=== PATIENT | male | born 1975 | race American Indian/Alaskan Native ===

== ENCOUNTER 2017-11-13 14:08 | Inpatient (IN) | payer OTHER ==
[2017-11-13] MEDS ORDERED: NACL 0.9% 1000 ML 1,000 ML ONE (14:53)
[2017-11-13] MEDS ORDERED: NACL 0.9% 1000 ML 1,000 ML IV ONE ×2 (14:58→15:04)
--- NOTE | 2017-11-13 15:15 | Emergency Department Report ---
ED General Adult HPI - General Chief complaint: Hyperglycemia Stated complaint: BLOOD SUGAR HIGH Time Seen by Provider: 11/13/17 14:53 Source: patient, EMS (ems notes not available at time of chart dictation), RN notes reviewed Mode of arrival: Ambulatory Limitations: No Limitations - History of Present Illness Initial comments: This is a 42-year-old obese male, previously unknown to this provider, visiting from [place], has a history of sleep apnea, reports compliance with BiPAP/CPAP, typically not hypoxic at baseline, also with a past history of obesity and diabetes. 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 This is intermittent, worsens with physical exertion decreases with rest. There is no chest pain, there is no hematemesis or bright red blood per rectum. On review of systems he does admits to left lower extremity pain. Patient reports that he feels like his heart is racing, this started earlier on today. This happened about a year ago. It then resolves. It got worse recently. -: Gradual Location: left, lower extremity Severity scale (0 -10): 0 Quality: aching Consistency: constant Improves with: none Worsens with: none Associated Symptoms: malaise, shortness of breath, weakness. denies: confusion , chest pain, cough, diaphoresis, fever/chills, loss of appetite, nausea/ vomiting, rash, seizure, syncope - Related Data Home Medications Medication Instructions Recorded Confirmed Last Taken Amoxicillin [Amoxicillin TAB] 875 mg PO BID 11/13/17 11/13/17 11/13/17 Atenolol [Tenormin] 100 mg PO QDAY 11/13/17 11/13/17 11/13/17 Cholecalciferol (Vitamin D3) 50,000 unit PO QWEEK 11/13/17 11/13/17 Unknown [Decara 50,000 unit] Hydrochlorothiazide [HCTZ] 25 mg PO QDAY 11/13/17 11/13/17 11/13/17 Phentermine HCl [Adipex-P] 37.5 mg PO QAM 11/13/17 11/13/17 Unknown Allergies Allergy/AdvReac Type Severity Reaction Status Date / Time No Known Allergies Allergy Unverified 11/13/17 14:38 ED Review of Systems ROS: Stated complaint: BLOOD SUGAR HIGH Other details as noted in HPI Constitutional: denies: fever Eyes: denies: vision change ENT: denies: epistaxis Respiratory: shortness of breath Cardiovascular: denies: chest pain Gastrointestinal: denies: hematemesis, melena, hematochezia Musculoskeletal: myalgia. denies: arthralgia Skin: denies: lesions Neurological: weakness ED Past Medical Hx - Past Medical History Hx Hypertension: Yes Hx Diabetes: Yes - Surgical History Past Surgical History?: Yes Additional Surgical History: LapBand - Social History Smoking Status: Never Smoker Substance Use Type: Alcohol - Medications Home Medications: Home Medications Medication Instructions Recorded Confirmed Last Taken Type Amoxicillin [Amoxicillin TAB] 875 mg PO BID 11/13/17 11/13/17 11/13/17 History Atenolol [Tenormin] 100 mg PO QDAY 11/13/17 11/13/17 11/13/17 History Cholecalciferol (Vitamin D3) 50,000 unit PO QWEEK 11/13/17 11/13/17 Unknown History [Decara 50,000 unit] Hydrochlorothiazide [HCTZ] 25 mg PO QDAY 11/13/17 11/13/17 11/13/17 History Phentermine HCl [Adipex-P] 37.5 mg PO QAM 11/13/17 11/13/17 Unknown History ED Physical Exam - General Limitations: No Limitations General appearance: alert, in no apparent distress - Head Head exam: Present: atraumatic, normocephalic - Eye Eye exam: Present: normal appearance, EOMI. Absent: nystagmus - ENT ENT exam: Present: normal exam, normal orophraynx, mucous membranes moist, normal external ear exam - Neck Neck exam: Present: normal inspection, full ROM - Respiratory Respiratory exam: Present: normal lung sounds bilaterally. Absent: respiratory distress, chest wall tenderness - Cardiovascular Cardiovascular Exam: Present: normal rhythm, tachycardia, normal heart sounds. Absent: systolic murmur, diastolic murmur, rubs, gallop - GI/Abdominal GI/Abdominal exam: Present: soft, normal bowel sounds. Absent: distended, tenderness, guarding, rebound, rigid, pulsatile mass - Rectal Rectal exam: Present: deferred - Extremities Exam Extremities exam: Present: normal inspection, full ROM, normal capillary refill , pedal edema, other (the left Is asymmetrically swollen when compared to the right calf.). Absent: tenderness, calf tenderness - Back Exam Back exam: Present: normal inspection, full ROM. Absent: paraspinal tenderness , vertebral tenderness - Neurological Exam Neurological exam: Present: alert, oriented X3, CN II-XII intact, other ( Extraocular movements intact. Tongue midline. No facial droop. Facial sensation intact to light touch in the V1, V2, V3 distribution bilaterally. 5 and 5 strength in 4 extremities.. Sensation is intact to light touch in 4 extremities.). Absent: motor sensory deficit - Psychiatric Psychiatric exam: Present: normal affect, normal mood - Skin Skin exam: Present: warm, dry, intact, normal color. Absent: rash ED Course Vital Signs 11/13/17 11/13/17 11/13/17 14:26 14:30 14:38 Temperature 98.5 F Pulse Rate 125 H 95 H 93 H Respiratory 20 20 Rate Blood Pressure 95/57 95/57 O2 Sat by Pulse 90 96 Oximetry 11/13/17 11/13/17 11/13/17 14:44 15:01 15:30 Temperature Pulse Rate 93 H 90 86 Respiratory 15 23 Rate Blood Pressure 95/57 124/83 O2 Sat by Pulse 90 97 Oximetry 11/13/17 11/13/17 11/13/17 16:00 16:30 17:01 Temperature Pulse Rate 86 86 81 Respiratory 23 26 H 17 Rate Blood Pressure 112/63 110/69 152/73 O2 Sat by Pulse 100 91 98 Oximetry 11/13/17 11/13/17 11/13/17 17:30 17:37 18:27 Temperature 98.4 F 98.4 F Pulse Rate 83 Respiratory 25 H 19 Rate Blood Pressure 133/81 O2 Sat by Pulse 99 Oximetry - Reevaluation(s) Reevaluation #1: 11/13/17 19:09 CT scan demonstrates saddle pulmonary embolus with large clot burden. Case discussed with vascular surgery Dr. Brooks, I have requested emergency consult to determine patient's suitability for catheter directed lysis. Critical care physician Dr. Lord has been paged, I'm awaiting callback. Dr Alcala updated Reevaluation #2: 11/13/17 19:59 Dr. Duncan of the vascular surgery service is in the emergency room to evaluate the patient. - Consultations Consultation #1: 11/13/17 19:18 Case is discussed with critical care physician, Dr. Bridger Lord, who agrees with placement into the intensive care unit. ED Medical Decision Making - Lab Data Result diagrams: 11/13/17 15:07 11/13/17 15:07 Vital Signs 11/13/17 11/13/17 11/13/17 14:26 14:30 14:38 Temperature 98.5 F Pulse Rate 125 H 95 H 93 H Respiratory 20 20 Rate Blood Pressure 95/57 95/57 O2 Sat by Pulse 90 96 Oximetry 11/13/17 11/13/17 11/13/17 14:44 15:01 15:30 Temperature Pulse Rate 93 H 90 86 Respiratory 15 23 Rate Blood Pressure 95/57 124/83 O2 Sat by Pulse 90 97 Oximetry 11/13/17 11/13/17 11/13/17 16:00 16:30 17:01 Temperature Pulse Rate 86 86 81 Respiratory 23 26 H 17 Rate Blood Pressure 112/63 110/69 152/73 O2 Sat by Pulse 100 91 98 Oximetry 11/13/17 11/13/17 17:30 17:37 Temperature 98.4 F Pulse Rate 83 Respiratory 25 H Rate Blood Pressure 133/81 O2 Sat by Pulse Oximetry Lab Results 11/13/17 11/13/17 11/13/17 Range/Units 15:07 15:07 15:07 WBC 7.1 (4.5-11.0) K/mm3 RBC 5.30 H (3.65-5.03) M/mm3 Hgb 13.1 (11.8-15.2) gm/dl Hct 40.9 (35.5-45.6) % MCV 77 L (84-94) fl MCH 25 L (28-32) pg MCHC 32 (32-34) % RDW 14.2 (13.2-15.2) % Plt Count 166 (140-440) K/mm3 Lymph % (Auto) 12.8 L (13.4-35.0) % [place]ccreary % (Auto) 8.3 H (0.0-7.3) % Eos % (Auto) 0.3 (0.0-4.3) % Baso % (Auto) 0.6 (0.0-1.8) % Lymph # 0.9 L (1.2-5.4) K/mm3 Mccreary # 0.6 (0.0-0.8) K/mm3 Eos # 0.0 (0.0-0.4) K/mm3 Baso # 0.0 (0.0-0.1) K/mm3 Seg Neutrophils % 78.0 H (40.0-70.0) % Seg Neutrophils # 5.6 (1.8-7.7) K/mm3 PT (12.2-14.9) Sec. INR (0.87-1.13) APTT (24.2-36.6) Sec. D-Dimer (0-234) ng/mlDDU ABG pH (7.350-7.450) pH Units ABG pCO2 mm Hg ABG pO2 (80.0-90.0) mm Hg ABG HCO3 (20.0-26.0) mmol/L ABG O2 Saturation (95.0-99.0) % ABG O2 Content (0.0-44) ABG Base Excess (-2.0-3.0) mmol/L ABG Hemoglobin (14.0-18.0) gm/dl ABG Carboxyhemoglobin (0.0-5.0) % ABG Methemoglobin (0.0-1.5) % VBG pH 7.320 (7.320-7.420) Oxyhemoglobin (95.0-99.0) % FiO2 % Sodium 134 L (137-145) mmol/L Potassium 4.1 (3.6-5.0) mmol/L Chloride 92.0 L (98-107) mmol/L Carbon Dioxide 27 (22-30) mmol/L Anion Gap 19 mmol/L BUN 10 (9-20) mg/dL Creatinine 1.0 (0.8-1.5) mg/dL Estimated GFR > 60 ml/min BUN/Creatinine Ratio 10 % Glucose 505 H* (75-100) mg/dL POC Glucose (70-105) Calcium 9.7 (8.4-10.2) mg/dL Total Creatine Kinase (55-170) units/L Troponin T (0.00-0.029) ng/mL Triglycerides (2-149) mg/dL Cholesterol (50-199) mg/dL LDL Cholesterol Direct (50-130) mg/dL HDL Cholesterol (40-59) mg/dL Cholesterol/HDL Ratio % 11/13/17 11/13/17 11/13/17 Range/Units 15:09 15:09 15:09 WBC (4.5-11.0) K/mm3 RBC (3.65-5.03) M/mm3 Hgb (11.8-15.2) gm/dl Hct (35.5-45.6) % MCV (84-94) fl MCH (28-32) pg MCHC (32-34) % RDW (13.2-15.2) % Plt Count (140-440) K/mm3 Lymph % (Auto) (13.4-35.0) % Mccreary % (Auto) (0.0-7.3) % Eos % (Auto) (0.0-4.3) % Baso % (Auto) (0.0-1.8) % Lymph # (1.2-5.4) K/mm3 Mccreary # (0.0-0.8) K/mm3 Eos # (0.0-0.4) K/mm3 Baso # (0.0-0.1) K/mm3 Seg Neutrophils % (40.0-70.0) % Seg Neutrophils # (1.8-7.7) K/mm3 PT 14.1 (12.2-14.9) Sec. INR 1.04 (0.87-1.13) APTT 31.9 (24.2-36.6) Sec. D-Dimer 2334.31 H (0-234) ng/mlDDU ABG pH (7.350-7.450) pH Units ABG pCO2 mm Hg ABG pO2 (80.0-90.0) mm Hg ABG HCO3 (20.0-26.0) mmol/L ABG O2 Saturation (95.0-99.0) % ABG O2 Content (0.0-44) ABG Base Excess (-2.0-3.0) mmol/L ABG Hemoglobin (14.0-18.0) gm/dl ABG Carboxyhemoglobin (0.0-5.0) % ABG Methemoglobin (0.0-1.5) % VBG pH (7.320-7.420) Oxyhemoglobin (95.0-99.0) % FiO2 % Sodium (137-145) mmol/L Potassium (3.6-5.0) mmol/L Chloride (98-107) mmol/L Carbon Dioxide (22-30) mmol/L Anion Gap mmol/L BUN (9-20) mg/dL Creatinine (0.8-1.5) mg/dL Estimated GFR ml/min BUN/Creatinine Ratio % Glucose (75-100) mg/dL POC Glucose (70-105) Calcium (8.4-10.2) mg/dL Total Creatine Kinase 83 (55-170) units/L Troponin T 0.105 H* (0.00-0.029) ng/mL Triglycerides 218 H (2-149) mg/dL Cholesterol 193 (50-199) mg/dL LDL Cholesterol Direct 143 H (50-130) mg/dL HDL Cholesterol 31 L (40-59) mg/dL Cholesterol/HDL Ratio 6.22 % 11/13/17 11/13/17 Range/Units 15:10 15:20 WBC (4.5-11.0) K/mm3 RBC (3.65-5.03) M/mm3 Hgb (11.8-15.2) gm/dl Hct (35.5-45.6) % MCV (84-94) fl MCH (28-32) pg MCHC (32-34) % RDW (13.2-15.2) % Plt Count (140-440) K/mm3 Lymph % (Auto) (13.4-35.0) % M[place]reary % (Auto) (0.0-7.3) % Eos % (Auto) (0.0-4.3) % Baso % (Auto) (0.0-1.8) % Lymph # (1.2-5.4) K/mm3 Mccreary # (0.0-0.8) K/mm3 Eos # (0.0-0.4) K/mm3 Baso # (0.0-0.1) K/mm3 Seg Neutrophils % (40.0-70.0) % Seg Neutrophils # (1.8-7.7) K/mm3 PT (12.2-14.9) Sec. INR (0.87-1.13) APTT (24.2-36.6) Sec. D-Dimer (0-234) ng/mlDDU ABG pH 7.425 (7.350-7.450) pH Units ABG pCO2 39.7 mm Hg ABG pO2 57.4 L (80.0-90.0) mm Hg ABG HCO3 25.4 (20.0-26.0) mmol/L ABG O2 Saturation 90.3 L (95.0-99.0) % ABG O2 Content 15.4 (0.0-44) ABG Base Excess 1.1 (-2.0-3.0) mmol/L ABG Hemoglobin 12.4 L (14.0-18.0) gm/dl ABG Carboxyhemoglobin 1.6 (0.0-5.0) % ABG Methemoglobin 0.5 (0.0-1.5) % VBG pH (7.320-7.420) Oxyhemoglobin 88.5 L (95.0-99.0) % FiO2 21 % Sodium (137-145) mmol/L Potassium (3.6-5.0) mmol/L Chloride (98-107) mmol/L Carbon Dioxide (22-30) mmol/L Anion Gap mmol/L BUN (9-20) mg/dL Creatinine (0.8-1.5) mg/dL Estimated GFR ml/min BUN/Creatinine Ratio % Glucose (75-100) mg/dL POC Glucose 400 H (70-105) Calcium (8.4-10.2) mg/dL Total Creatine Kinase (55-170) units/L Troponin T (0.00-0.029) ng/mL Triglycerides (2-149) mg/dL Cholesterol (50-199) mg/dL LDL Cholesterol Direct (50-130) mg/dL HDL Cholesterol (40-59) mg/dL Cholesterol/HDL Ratio % - EKG Data -: EKG Interpreted by Mt EKG shows normal: sinus rhythm Rate: normal - EKG Data 11/13/17 18:32 Normal sinus, 92 bpm, right axis deviation, T-wave inversions in 3, aVF, V3, V4 , V5, incomplete right bundle branch block, QTC prolonged, abnormal EKG, not having chest pain, not consistent with a STEMI - Radiology Data Radiology results: report reviewed, image reviewed LIVE [facility] YASMINE WIGGINS Male : 1975 [facility]# [id number] 11/13/17 17:29 - Radiology Dept. Note by HELIO WORLEY [facility] Num: [id number] : 1975 Patient Age: 42 VASCULAR LAB.PRELIMINARY REPORT. BLE VENOUS DUPLEX DONE BEDSIDE. EVIDENCE OF ACUTE NON-OCCLUSIVE DVT IN THE LT.POPLITEAL VEIN.ADRIÁN(RN) INFORMED AT 1522. Initialized on 11/13/17 17:29 - END OF NOTE - Medical Decision Making Differential diagnosis, including but not limited to: Obstructive sleep apnea, obesity hypoventilation syndrome, right ventricular heart failure, lower extremity DVT, pulmonary embolus, multifactorial respiratory failure, hyperglycemia, diabetic ketoacidosis, hyperosmolar state Assessment and plan: 42-year-old obese male, found to be hypoxic, which is new for him, arterial blood gas on room air demonstrates hypoxemic respiratory failure. He has no chest pain and has normal renal function and has elevated troponin is well. Multiple risk factors for DVT and pulmonary embolus, treated empirically with Lovenox at 1 mg/kg. Reports no contraindications to systemic anticoagulation. Laboratory studies also demonstrate hyperglycemia without an anion gap acidosis. Does not meet criteria for diabetic ketoacidosis or hyperosmolar state. Given IV fluids. Declines pain medication at this time. CT scan of the chest is pending. Case presented to the Hospital physician, Dr. Alcala who accepted the patient for hyperglycemia, elevated troponin level, hypoxic respiratory failure. Critical Care Time: Yes Critical care time in (mins) excluding proc time.: 45 Critical care attestation.: If time is entered above; I have spent that time in minutes in the direct care of this critically ill patient, excluding procedure time. ED Disposition Clinical Impression: Acute hypoxemic respiratory failure, Elevated troponin I level, Hyperglycemia Deep vein thrombosis (DVT) of left lower extremity Qualifiers: Affected thrombotic vein of extremity: popliteal Chronicity: acute Qualified Code(s): I82.432 - Acute embolism and thrombosis of left popliteal vein Saddle pulmonary embolus Qualifiers: Chronicity: acute Acute cor pulmonale presence: with acute cor pulmonale Qualified Code(s): I26.02 - Saddle embolus of pulmonary artery with acute cor pulmonale Disposition: OP ADMIT IP TO THIS HOSP Is pt being admited?: Yes Does the pt Need Aspirin: Yes Condition: Critical Referrals: PRIMARY CARE, [Primary Care Provider] - 3-5 Days
[2017-11-13 15:19] LABS: Basophils % (Auto) 0.6 % (0.0-1.8); Eosinophils % (Auto) 0.3 % (0.0-4.3); Hematocrit 40.9 % (35.5-45.6); Hemoglobin 13.1 gm/dl (11.8-15.2); Lymphocytes # (Auto) 0.9 K/mm3 (1.2-5.4); Lymphocytes % (Auto) 12.8 % (13.4-35.0); Mean Corpuscular HGB Conc 32 % (32-34); Mean Corpuscular Volume 77 fl (84-94); Monocytes # (Auto) 0.6 K/mm3 (0.0-0.8); Monocytes % (Auto) 8.3 % (0.0-7.3); Platelet Count 166 K/mm3 (140-440); Red Cell Distribution Width 14.2 % (13.2-15.2)
[2017-11-13 15:20] LABS: Mean Corpuscular Hemoglobin 25 pg (28-32)
[2017-11-13 15:28] LABS: ABG Base Excess 1.1 mmol/L (-2.0-3.0); ABG HCO3 25.4 mmol/L (20.0-26.0); ABG Methemoglobin 0.5 % (0.0-1.5); ABG Oxygen Saturation 90.3 % (95.0-99.0); ABG PCO2 39.7 mm Hg; ABG PH 7.425 pH Units (7.350-7.450); ABG PO2 57.4 mm Hg (80.0-90.0)
--- NOTE | 2017-11-13 15:30 | XRay Report ---
PORTABLE CHEST INDICATION: Dyspnea, near syncope. COMPARISON: None similar at this institution. FINDINGS: Portable, frontal chest radiograph suggests mild cardiomegaly. Various extrinsic artifacts, including over left mid to lower lung zone with grossly clear remainder aerated lungs. Grossly intact bones. CONCLUSION: Mild cardiomegaly and few artifacts, as described. Thank you for the opportunity to participate in this patient's care.
[2017-11-13 15:31] LABS: INR 1.04 (0.87-1.13)
[2017-11-13 15:32] LABS: Partial Thromboplastin Time 31.9 Sec. (24.2-36.6)
[2017-11-13 15:32] LABS: BUN/Creatinine Ratio 10; Blood Urea Nitrogen 10 mg/dL (9-20); Calcium 9.7 mg/dL (8.4-10.2); Hemolysis Index 2
[2017-11-13] MEDS ORDERED: HumuLIN R IV ONE (15:39)
[2017-11-13] MEDS ORDERED: LOVENOX SUB-Q STA (16:11)
[2017-11-13 16:47] LABS: Chol/HDL Ratio 6.22 %
[2017-11-13 18:17] LABS: Bilirubin,Urine NEG (Negative); Blood,Urine NEG (Negative); Color,Urine Yellow (Yellow); Protein,Urine <15 mg/dL mg/dL (Negative); Urobilinogen,Urine < 2.0 mg/dL (<2.0)
[2017-11-13] MEDS ORDERED: BABY ASPIRIN PO ONE (18:35)
--- NOTE | 2017-11-13 19:18 | Cat Scan Report ---
FINAL REPORT EXAM: CT ANGIO CHEST HISTORY: syncope TECHNIQUE: High-resolution helical axial images were obtained of the chest during intravenous administration of iodinated contrast. Images are reconstructed in the sagittal and coronal planes. PRIORS: None. FINDINGS: Positive for PE with multiple bilateral filling defects. Specifically there is a saddle embolus extending across right and left main pulmonary arteries. There is a large amount of thrombus in the distal right main pulmonary artery extending into all 3 lobar and many of the segmental and subsegmental branches, with the greatest degree of involvement in the right lower lobe. On the left, there is a large amount of thrombus in the left lower lobar branch and posterior segmental and subsegmental branches. There is thrombosis to the lingular branch and to a left upper lobar branch. The heart is normal in size and configuration. The lungs are clear. There is no evidence of pleural effusion. Images through the upper abdomen show a lap band in place on the stomach. There is multilevel mid to lower thoracic spondylosis. IMPRESSION: large amount PE. Please see the description of findings above. The greatest burden is in the right lower lobe but all lobes are involved. Also note the presence of a saddle embolus. I gave a verbal report by phone to Dr. Soto at 6:58 p.m. eastern daylight time.
[2017-11-13] MEDS ORDERED: XYLOCAINE 2% INFILTRATI ONE (20:09)
[2017-11-13] MEDS ORDERED: HEPARIN 10,000 UNITS/10 ML ONE (20:09)
[2017-11-13] MEDS ORDERED: VERSED ONE (20:09)
[2017-11-13] MEDS ORDERED: HEPARIN/NS 5000 UNIT/500ML(CATH LAB) 1,000 ML IR ONE (20:09)
[2017-11-13] MEDS ORDERED: CATHFLO ONE (20:10)
[2017-11-13] MEDS ORDERED: SUBLIMAZE ONE (20:10)
[2017-11-13] MEDS ORDERED: ANCEF/STERILE WATER 2 GM/20 ML 2 GM/20 ML SYRINGE IV ONE (20:19)
[2017-11-13 20:32] LABS: Basophils # (Auto) 0.1 K/mm3 (0.0-0.1); Basophils % (Auto) 1.1 % (0.0-1.8); Eosinophils % (Auto) 0.4 % (0.0-4.3); Hematocrit 41.3 % (35.5-45.6); Hemoglobin 13.8 gm/dl (11.8-15.2); Lymphocytes # (Auto) 1.5 K/mm3 (1.2-5.4); Lymphocytes % (Auto) 21.8 % (13.4-35.0); Mean Corpuscular HGB Conc 33 % (32-34); Mean Corpuscular Volume 76 fl (84-94); Monocytes # (Auto) 0.8 K/mm3 (0.0-0.8); Monocytes % (Auto) 11.2 % (0.0-7.3); Platelet Count 164 K/mm3 (140-440); Red Blood Count 5.44 M/mm3 (3.65-5.03); Red Cell Distribution Width 14.5 % (13.2-15.2)
[2017-11-13 20:42] LABS: INR 1.08 (0.87-1.13); Mean Corpuscular Hemoglobin 25 pg (28-32)
[2017-11-13 20:43] LABS: Partial Thromboplastin Time 43.4 Sec. (24.2-36.6)
[2017-11-13 20:45] LABS: BUN/Creatinine Ratio 10; Blood Urea Nitrogen 8 mg/dL (9-20); Calcium 9.3 mg/dL (8.4-10.2); Hemolysis Index 2
[2017-11-13] MEDS ORDERED: NACL 0.9% 500 ML 500 ML ONE (20:50)
[2017-11-13] MEDS ORDERED: HEPARIN/ 0.45% NACL-25,000 UNIT/500 ML 25,000 UNIT/500 ML BAG SHEATH SCH ×2 (21:00)
[2017-11-13] MEDS ORDERED: CATHFLO 20 MG in NACL 0.9% 500 ML 500 ML EKOSDLUMEN SCH (21:00)
[2017-11-13] MEDS ORDERED: NACL 0.9% 1000 ML 1,000 ML EKOSCLUMEN SCH ×3 (21:00)
[2017-11-13] MEDS ORDERED: CATHFLO 10 MG in NACL 0.9% 250ML 250 ML EKOSDLUMEN SCH (21:00)
[2017-11-13] MEDS ORDERED: NACL 0.9% 1000 ML 1,000 ML SHEATH SCH ×3 (21:00)
[2017-11-13] MEDS ORDERED: CATHFLO 10 MG in NACL 0.9% 250ML 250 ML IV SCH (21:00)
[2017-11-13] MEDS ORDERED: NORCO 5/325 PO PRN (21:01)
[2017-11-13] MEDS ORDERED: ZOFRAN IV PRN (21:01)
[2017-11-13] MEDS ORDERED: MORPHINE IV PRN (21:01)
[2017-11-13] MEDS ORDERED: HumaLOG SUB-Q ONE ×2 (21:03→23:00)
--- NOTE | 2017-11-13 21:53 | History and Physical Report ---
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 He states that this began earlier today when he was walking and lost his balance. He then grabbed his chest and noted that he had difficulty catching his breath. 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 He does state that he has occasional leg swelling however denies any acute leg swelling that was different than his usual. Upon evaluation here he had decreased oxygen saturations and his workup eventually revealed a left lower extremity DVT with saddle pulmonary embolus and evidence of right heart strain. We were consulted for evaluation and possible thrombolysis. The patient denies history of recent trauma, recent surgery, or history of GI bleeding. Past History Past Medical History: diabetes, hypertension, other (sleep apnea, morbid obesity ) Past Surgical History: Other Social history: no significant social history Medications and Allergies Allergies Allergy/AdvReac Type Severity Reaction Status Date / Time No Known Allergies Allergy Unverified 11/13/17 14:38 Home Medications Medication Instructions Recorded Confirmed Last Taken Type Amoxicillin [Amoxicillin TAB] 875 mg PO BID 11/13/17 11/13/17 11/13/17 History Atenolol [Tenormin] 100 mg PO QDAY 11/13/17 11/13/17 11/13/17 History Cholecalciferol (Vitamin D3) 50,000 unit PO QWEEK 11/13/17 11/13/17 Unknown History [Decara 50,000 unit] Hydrochlorothiazide [HCTZ] 25 mg PO QDAY 11/13/17 11/13/17 11/13/17 History Phentermine HCl [Adipex-P] 37.5 mg PO QAM 11/13/17 11/13/17 Unknown History Active Meds: Active Medications Acetaminophen/Hydrocodone Bitart ([place] 5/325) 2 each PO Q6H PRN PRN Reason: Pain, Moderate (4-6) Hydrochlorothiazide (Hctz) 25 mg PO QDAY KATT Alteplase, Recombinant 10 mg/ (Sodium Chloride) 250 mls @ 10 mls/hr EKOSDLUMEN DIRECT KATT Alteplase, Recombinant 10 mg/ (Sodium Chloride) 250 mls @ 10 mls/hr IV DIRECT KATT Heparin Sodium/Sodium Chloride (Heparin/ 0.45% Nacl-25,000 Unit/500 Ml) 25,000 unit in 500 mls @ 10 mls/hr SHEATH DIRECT KATT; Protocol Heparin Sodium/Sodium Chloride (Heparin/ 0.45% Nacl-25,000 Unit/500 Ml) 25,000 unit in 500 mls @ 10 mls/hr SHEATH DIRECT KATT; Protocol Sodium Chloride (Nacl 0.9% 1000 Ml) 1,000 mls @ 30 mls/hr IV DIRECT KATT Sodium Chloride (Nacl 0.9% 1000 Ml) 1,000 mls @ 30 mls/hr SHEATH DIRECT KATT Sodium Chloride (Nacl 0.9% 1000 Ml) 1,000 mls @ 35 mls/hr EKOSCLUMEN DIRECT KATT Sodium Chloride (Nacl 0.9% 1000 Ml) 1,000 mls @ 30 mls/hr SHEATH DIRECT KATT Sodium Chloride (Nacl 0.9% 1000 Ml) 1,000 mls @ 35 mls/hr EKOSCLUMEN DIRECT KATT Miscellaneous Medication (Amoxicillin [Amoxicillin Tab]) 875 mg PO BID KATT Miscellaneous Medication (Atenolol [Tenormin]) 100 mg PO QDAY KATT Miscellaneous Medication (Cholecalciferol (Vitamin D3) [Decara 50,000 Unit]) 50 ,000 unit PO QWEEK KATT Morphine Sulfate (Morphine) 2 mg IV Q4H PRN PRN Reason: Pain, Moderate (4-6) Ondansetron HCl (Zofran) 4 mg IV Q8H PRN PRN Reason: Nausea And Vomiting Review of Systems All systems: negative Exam - Constitutional Vitals: Temp Pulse Resp BP Pulse Ox 98.4 F 78 17 127/85 99 11/13/17 18:27 11/13/17 20:30 11/13/17 20:30 11/13/17 19:30 11/13/17 20:30 General appearance: Present: no acute distress - Neck Neck: Present: supple - Respiratory Respiratory effort: normal - Cardiovascular Rhythm: regular - Extremities Extremities: no ischemia, pulses symmetrical, normal temperature - Abdominal General gastrointestinal: Present: soft Male genitourinary: Present: deferred - Rectal Rectal Exam: deferred - Musculoskeletal Musculoskeletal: strength equal bilaterally Results - Labs CBC & Chem 7: 11/13/17 20:21 11/13/17 20:21 Labs: Abnormal lab results 11/13/17 11/13/17 11/13/17 Range/Units 15:07 15:07 15:09 RBC 5.30 H (3.65-5.03) M/mm3 MCV 77 L (84-94) fl MCH 25 L (28-32) pg Lymph % (Auto) 12.8 L (13.4-35.0) % [place] % (Auto) 8.3 H (0.0-7.3) % Lymph # 0.9 L (1.2-5.4) K/mm3 Seg Neutrophils % 78.0 H (40.0-70.0) % APTT (24.2-36.6) Sec. D-Dimer 2334.31 H (0-234) ng/mlDDU ABG pO2 (80.0-90.0) mm Hg ABG O2 Saturation (95.0-99.0) % ABG Hemoglobin (14.0-18.0) gm/dl Oxyhemoglobin (95.0-99.0) % Sodium 134 L (137-145) mmol/L Chloride 92.0 L (98-107) mmol/L BUN (9-20) mg/dL Glucose 505 H* (75-100) mg/dL POC Glucose (70-105) Troponin T (0.00-0.029) ng/mL Triglycerides (2-149) mg/dL LDL Cholesterol Direct (50-130) mg/dL HDL Cholesterol (40-59) mg/dL 11/13/17 11/13/17 11/13/17 Range/Units 15:09 15:10 15:20 RBC (3.65-5.03) M/mm3 MCV (84-94) fl MCH (28-32) pg Lymph % (Auto) (13.4-35.0) % [place] % (Auto) (0.0-7.3) % Lymph # (1.2-5.4) K/mm3 Seg Neutrophils % (40.0-70.0) % APTT (24.2-36.6) Sec. D-Dimer (0-234) ng/mlDDU ABG pO2 57.4 L (80.0-90.0) mm Hg ABG O2 Saturation 90.3 L (95.0-99.0) % ABG Hemoglobin 12.4 L (14.0-18.0) gm/dl Oxyhemoglobin 88.5 L (95.0-99.0) % Sodium (137-145) mmol/L Chloride (98-107) mmol/L BUN (9-20) mg/dL Glucose (75-100) mg/dL POC Glucose 400 H (70-105) Troponin T 0.105 H* (0.00-0.029) ng/mL Triglycerides 218 H (2-149) mg/dL LDL Cholesterol Direct 143 H (50-130) mg/dL HDL Cholesterol 31 L (40-59) mg/dL 11/13/17 11/13/17 11/13/17 Range/Units 19:18 20:21 20:21 RBC 5.44 H (3.65-5.03) M/mm3 MCV 76 L (84-94) fl MCH 25 L (28-32) pg Lymph % (Auto) (13.4-35.0) % [place] % (Auto) 11.2 H (0.0-7.3) % Lymph # (1.2-5.4) K/mm3 Seg Neutrophils % (40.0-70.0) % APTT 43.4 H (24.2-36.6) Sec. D-Dimer (0-234) ng/mlDDU ABG pO2 (80.0-90.0) mm Hg ABG O2 Saturation (95.0-99.0) % ABG Hemoglobin (14.0-18.0) gm/dl Oxyhemoglobin (95.0-99.0) % Sodium (137-145) mmol/L Chloride (98-107) mmol/L BUN (9-20) mg/dL Glucose (75-100) mg/dL POC Glucose 345 H (70-105) Troponin T (0.00-0.029) ng/mL Triglycerides (2-149) mg/dL LDL Cholesterol Direct (50-130) mg/dL HDL Cholesterol (40-59) mg/dL 11/13/17 Range/Units 20:21 RBC (3.65-5.03) M/mm3 MCV (84-94) fl MCH (28-32) pg Lymph % (Auto) (13.4-35.0) % [place] % (Auto) (0.0-7.3) % Lymph # (1.2-5.4) K/mm3 Seg Neutrophils % (40.0-70.0) % APTT (24.2-36.6) Sec. D-Dimer (0-234) ng/mlDDU ABG pO2 (80.0-90.0) mm Hg ABG O2 Saturation (95.0-99.0) % ABG Hemoglobin (14.0-18.0) gm/dl Oxyhemoglobin (95.0-99.0) % Sodium 135 L (137-145) mmol/L Chloride 94.7 L (98-107) mmol/L BUN 8 L (9-20) mg/dL Glucose 333 H (75-100) mg/dL POC Glucose (70-105) Troponin T (0.00-0.029) ng/mL Triglycerides (2-149) mg/dL LDL Cholesterol Direct (50-130) mg/dL HDL Cholesterol (40-59) mg/dL - Imaging and Cardiology CT scan - chest: image reviewed Venous US: image reviewed Assessment and Plan The patient is a 42-year-old male with a history of shortness of breath and was diagnosed with a saddle pulmonary embolus with right heart strain. He is adequate candidate for bilateral pulmonary artery thrombolysis. He has been given the risks, benefits, and alternative procedures and has consented to the procedure. He'll be taken for the procedure and admitted to the ICU afterwards.
--- NOTE | 2017-11-13 22:20 | Operative Report ---
Operative Report Operative Report: Date of Procedure: 11/13/2017 Pre-operative Diagnosis: Saddle Pulmonary Embolus with Right Heart Strain Post-operative Diagnosis: Same Procedure(s): 1. Ultrasound-Guided Access Right Common Femoral Vein 2. Ultrasound-Guided Access Right Common Femoral Vein 3. Bilateral Pulmonary Artery Arteriogram 4. Placement of 106 x 6 cm EKOS Thrombolysis Catheter in the Right Pulmonary Artery 5. Placement of 106 x 12 cm EKOS Thrombolysis Catheter in the Left Pulmonary Artery 6. Radiologic Supervision with Interpretation Surgeon: Tavon Duncan M.D. Set Up Inspector: None Anesthesia: Local and IV sedation EBL: Minimal Counts: Correct Complications: None Condition: Stable Findings: Bilateral pulmonary emboli with significant thrombus burden and bilateral main pulmonary arteries. Specimen: None Indication: The patient is a 42-year-old male with a history of saddle pulmonary embolus with right heart strain who is in need of bilateral pulmonary artery thrombolysis. He was given the risk, benefits, and alternative procedures and has consented to the procedure. Description of Procedure: The patient was brought to the lab support technician and laid in supine position. After he was adequately sedated his right groin was prepped and draped in normal sterile fashion. Ultrasound was used to identify the right common femoral vein and confirm patency. Once this was confirmed the overlying skin and soft tissue was anesthetized with lidocaine. 2 small stab incisions were created with an 11 blade and a micropuncture was used to access the anterior surface of the vein using ultrasound guidance. The 0.018 micropuncture wire was advanced and then the micropuncture sheath was placed by Seldinger technique. The wire and inner cannula were removed and a 0.035 Bentson wire was advanced. The sheath was removed. The micropuncture needle was then used ultrasound guidance to access the right femoral vein and an additional puncture site and that technique was repeated and an additional 0.035 Bentson wire was advanced. At this point 6 [place] 11 cm sheaths were placed, by Seldinger technique, over each wire. Both sheaths were then flushed with heparinized saline. I then used a JR4 catheter and a Bentson wire and advanced the catheter wire into the right pulmonary artery. I performed a hand injected arteriogram of the right main pulmonary artery was demonstrated thrombus within the main pulmonary artery. I replaced a Bentson wire and then advanced the 106 x 6 cm EKOS catheter over the wire and then advanced the ultrasound wire into the catheter. I then advanced the JR4 over the remaining Bentson and advanced the catheter wire into the left main pulmonary artery and performed an arteriogram which again demonstrated thrombus within the pulmonary artery and distal branches. I replaced the wire and advanced it 106 x 12 cm EKOS catheter into the artery and then advanced the ultrasound wire into the catheter. I then used 0 silk sutures to secure the sheaths and catheters in place. I then primed the sheaths with 3000 units of heparin and the coolant ports of each EKOS catheter with 2000 units of heparin each. I then primed each drug port of the thrombolysis catheters with 4 mg of TPA. The sheaths and catheters were then dressed sterilely. The patient tolerated the procedure well. All sponge, needle, and estimate counts were correct. The patient was taken to the recovery area in stable condition.
[2017-11-13] MEDS: HEPARIN/ 0.45% NACL-25,000 UNIT/500 ML 25,000 UNIT/500 ML BAG SHEATH SCH ×2 (22:40→22:43)
[2017-11-13] MEDS: NACL 0.9% 1000 ML 1,000 ML IV SCH ×2 (22:40→22:42)
[2017-11-13] MEDS: AMOXICILLIN ORAL LIQD PO SCH (23:53)
[2017-11-14] MEDS ORDERED: SODIUM CHLORIDE FLUSH SYRINGE 10 ML IV PRN (02:18)
[2017-11-14] MEDS ORDERED: TYLENOL PO PRN (02:18)
[2017-11-14] MEDS ORDERED: AMBIEN PO PRN (02:18)
[2017-11-14] MEDS ORDERED: D50W (25GM) Syringe IV PRN (02:23)
--- NOTE | 2017-11-14 02:44 | History and Physical Report ---
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 Often, patient was sedated , so history was obtained from the girlfriend, who was at the bedside. She stated that the patient became short of breath at work, then 911 was called. Upon evaluation, he was found to have low blood pressure and low oxygen saturation. He has positive history of dizziness and bilateral leg swelling. In the ED, his workup revealed a left lower extremity DVT with saddle pulmonary embolus and evidence of right heart strain. He underwent emergent bilateral pulmonary artery thrombolysis and was later transferred to the ICU for continued management. Past History Past Medical History: diabetes, hypertension, other (sleep apnea, morbid obesity ) Past Surgical History: Other Social history: other (occasional alcohol use but no tobacco or illicit drug use ) Family history: other (could not be obtained because patient is heavily sedated) Medications and Allergies Allergies Allergy/AdvReac Type Severity Reaction Status Date / Time No Known Allergies Allergy Unverified 11/13/17 14:38 Home Medications Medication Instructions Recorded Confirmed Last Taken Type Amoxicillin [Amoxicillin TAB] 875 mg PO BID 11/13/17 11/13/17 11/13/17 History Atenolol [Tenormin] 100 mg PO QDAY 11/13/17 11/13/17 11/13/17 History Cholecalciferol (Vitamin D3) 50,000 unit PO QWEEK 11/13/17 11/13/17 Unknown History [Decara 50,000 unit] Hydrochlorothiazide [HCTZ] 25 mg PO QDAY 11/13/17 11/13/17 11/13/17 History Phentermine HCl [Adipex-P] 37.5 mg PO QAM 11/13/17 11/13/17 Unknown History Active Meds: Active Medications Acetaminophen (Tylenol) 650 mg PO Q6H PRN PRN Reason: Pain MILD(1-3)/Fever >100.5/RENE Acetaminophen/Hydrocodone Bitart ([place] 5/325) 2 each PO Q6H PRN PRN Reason: Pain, Moderate (4-6) Albuterol/Ipratropium (Duoneb *Not For Prn Use*) 1 ampul IH Q6HRT KATT Amoxicillin (Amoxicillin Oral Liqd) 875 mg PO BID KATT Last Admin: 11/13/17 23:53 Dose: 875 mg Atenolol (Tenormin) 100 mg PO QDAY KATT Dextrose (D50w (25gm) Syringe) 50 ml IV PRN PRN PRN Reason: Hypoglycemia Docusate Sodium (Colace) 100 mg PO BID KATT Famotidine (Pepcid) 20 mg PO BID KATT Hydrochlorothiazide (Hctz) 25 mg PO QDAY KATT Alteplase, Recombinant 10 mg/ (Sodium Chloride) 250 mls @ 10 mls/hr EKOSDLUMEN DIRECT KATT Last Admin: 11/13/17 22:42 Dose: 10 mls/hr Alteplase, Recombinant 10 mg/ (Sodium Chloride) 250 mls @ 10 mls/hr IV DIRECT KATT Last Admin: 11/13/17 22:39 Dose: 10 mls/hr Heparin Sodium/Sodium Chloride (Heparin/ 0.45% Nacl-25,000 Unit/500 Ml) 25,000 unit in 500 mls @ 10 mls/hr SHEATH DIRECT KATT; Protocol Last Admin: 11/13/17 22:43 Dose: 500 units/hr, 10 mls/hr Heparin Sodium/Sodium Chloride (Heparin/ 0.45% Nacl-25,000 Unit/500 Ml) 25,000 unit in 500 mls @ 10 mls/hr SHEATH DIRECT KATT; Protocol Sodium Chloride (Nacl 0.9% 1000 Ml) 1,000 mls @ 30 mls/hr IV DIRECT KATT Last Admin: 11/13/17 22:42 Dose: 30 mls/hr Sodium Chloride (Nacl 0.9% 1000 Ml) 1,000 mls @ 30 mls/hr SHEATH DIRECT KATT Sodium Chloride (Nacl 0.9% 1000 Ml) 1,000 mls @ 35 mls/hr EKOSCLUMEN DIRECT KATT Sodium Chloride (Nacl 0.9% 1000 Ml) 1,000 mls @ 30 mls/hr SHEATH DIRECT KATT Sodium Chloride (Nacl 0.9% 1000 Ml) 1,000 mls @ 35 mls/hr EKOSCLUMEN DIRECT KATT Sodium Chloride (Nacl 0.9% 1000 Ml) 1,000 mls @ 125 mls/hr IV DIRECT KATT Insulin Glargine (Lantus) 20 units SUB-Q BID KATT Insulin Human Regular (Humulin R) 0 units SUB-Q ACHS KATT; Protocol Miscellaneous Medication (Cholecalciferol (Vitamin D3) [Decara 50,000 Unit]) 50 ,000 unit PO QWEEK KATT Miscellaneous Medication (Phentermine Hcl [Adipex-P]) 37.5 mg PO QAM KATT Morphine Sulfate (Morphine) 2 mg IV Q4H PRN PRN Reason: Pain, Moderate (4-6) Ondansetron HCl (Zofran) 4 mg IV Q8H PRN PRN Reason: Nausea And Vomiting Sodium Chloride (Sodium Chloride Flush Syringe 10 Ml) 10 ml IV BID KATT Sodium Chloride (Sodium Chloride Flush Syringe 10 Ml) 10 ml IV PRN PRN PRN Reason: LINE FLUSH Zolpidem Tartrate (Ambien) 5 mg PO QHS PRN PRN Reason: Sleeplessness Review of Systems ROS unobtainable: due to mental status (patient is heavily sedated) Exam - Constitutional Vitals: Temp Pulse Resp BP Pulse Ox 98.4 F 76 11 L 122/84 93 11/13/17 18:27 11/13/17 23:51 11/13/17 23:51 11/13/17 23:51 11/13/17 23:51 General appearance: Present: no acute distress, well-nourished (morbidly obese) - EENT Eyes: Present: PERRL ENT: clear oral mucosa - Neck Neck: Present: supple, normal ROM - Respiratory Respiratory effort: normal Respiratory: bilateral: CTA - Cardiovascular Rhythm: regular Heart Sounds: Present: S1 & S2 - Extremities Extremity abnormal: edema (in BLE) - Abdominal General gastrointestinal: Present: soft, non-tender, normal bowel sounds Male genitourinary: Present: normal - Integumentary Integumentary: Present: dry (with venous dermatitis) - Psychiatric Psychiatric: intact judgment & insight - Neurologic Neurologic: CNII-XII intact Results - Labs CBC & Chem 7: 11/13/17 20:21 11/13/17 20:21 Labs: Laboratory Last Values WBC 6.9 K/mm3 (4.5-11.0) 11/13/17 20:21 RBC 5.44 M/mm3 (3.65-5.03) H 11/13/17 20:21 Hgb 13.8 gm/dl (11.8-15.2) 11/13/17 20:21 Hct 41.3 % (35.5-45.6) 11/13/17 20:21 MCV 76 fl (84-94) L 11/13/17 20:21 MCH 25 pg (28-32) L 11/13/17 20:21 MCHC 33 % (32-34) 11/13/17 20:21 RDW 14.5 % (13.2-15.2) 11/13/17 20:21 Plt Count 164 K/mm3 (140-440) 11/13/17 20:21 Lymph % (Auto) 21.8 % (13.4-35.0) 11/13/17 20:21 [place] % (Auto) 11.2 % (0.0-7.3) H 11/13/17 20:21 Eos % (Auto) 0.4 % (0.0-4.3) 11/13/17 20: Baso % (Auto) 1.1 % (0.0-1.8) 11/13/17 20:21 Lymph # 1.5 K/mm3 (1.2-5.4) 11/13/17 20:21 [place] # 0.8 K/mm3 (0.0-0.8) 11/13/17 20:21 Eos # 0.0 K/mm3 (0.0-0.4) 11/13/17 20: Baso # 0.1 K/mm3 (0.0-0.1) 11/13/17 20: Seg Neutrophils % 65.5 % (40.0-70.0) 11/13/17 20: Seg Neutrophils # 4.5 K/mm3 (1.8-7.7) 11/13/17 20: PT 14.6 Sec. (12.2-14.9) 11/13/17 20: INR 1.08 (0.87-1.13) 11/13/17 20:21 APTT 43.4 Sec. (24.2-36.6) H 11/13/17 20: Fibrinogen 420 mg/dl (211-480) 11/13/17 20:21 D-Dimer 2334.31 ng/mlDDU (0-234) H 11/13/17 15:09 ABG pH 7.425 pH Units (7.350-7.450) 11/13/17 15:20 ABG pCO2 39.7 mm Hg 11/13/17 15:20 ABG pO2 57.4 mm Hg (80.0-90.0) L 11/13/17 15:20 ABG HCO3 25.4 mmol/L (20.0-26.0) 11/13/17 15:20 ABG O2 Saturation 90.3 % (95.0-99.0) L 11/13/17 15:20 ABG O2 Content 15.4 (0.0-44) 11/13/17 15:20 ABG Base Excess 1.1 mmol/L (-2.0-3.0) 11/13/17 15:20 ABG Hemoglobin 12.4 gm/dl (14.0-18.0) L 11/13/17 15:20 ABG Carboxyhemoglobin 1.6 % (0.0-5.0) 11/13/17 15:20 ABG Methemoglobin 0.5 % (0.0-1.5) 11/13/17 15:20 VBG pH 7.320 (7.320-7.420) 11/13/17 15:07 Oxyhemoglobin 88.5 % (95.0-99.0) L 11/13/17 15:20 FiO2 21 % 11/13/17 15:20 Sodium 135 mmol/L (137-145) L 11/13/17 20:21 Potassium 4.0 mmol/L (3.6-5.0) 11/13/17 20:21 Chloride 94.7 mmol/L (98-107) L 11/13/17 20:21 Carbon Dioxide 27 mmol/L (22-30) 11/13/17 20:21 Anion Gap 17 mmol/L 11/13/17 20:21 BUN 8 mg/dL (9-20) L 11/13/17 20:21 Creatinine 0.8 mg/dL (0.8-1.5) 11/13/17 20:21 Estimated GFR > 60 ml/min 11/13/17 20:21 BUN/Creatinine Ratio 10 % 11/13/17 20:21 Glucose 333 mg/dL (75-100) H 11/13/17 20:21 POC Glucose 305 (70-105) H 11/13/17 22:32 Calcium 9.3 mg/dL (8.4-10.2) 11/13/17 20:21 Total Creatine Kinase 83 units/L (55-170) 11/13/17 15:09 Troponin T 0.105 ng/mL (0.00-0.029) H* 11/13/17 15:09 Triglycerides 218 mg/dL (2-149) H 11/13/17 15:09 Cholesterol 193 mg/dL (50-199) 11/13/17 15:09 LDL Cholesterol Direct 143 mg/dL (50-130) H 11/13/17 15:09 HDL Cholesterol 31 mg/dL (40-59) L 11/13/17 15:09 Cholesterol/HDL Ratio 6.22 % 11/13/17 15:09 Urine Color Yellow (Yellow) 11/13/17 17:37 Urine Turbidity Clear (Clear) 11/13/17 17:37 Urine pH 6.0 (5.0-7.0) 11/13/17 17:37 Ur Specific [place] 1.030 (1.003-1.030) 11/13/17 17:37 Urine Protein <15 mg/dl mg/dL (Negative) 11/13/17 17:37 Urine Glucose (UA) >=500 mg/dL (Negative) 11/13/17 17:37 Urine Ketones Tr mg/dL (Negative) 11/13/17 17:37 Urine Blood Neg (Negative) 11/13/17 17:37 Urine Nitrite Neg (Negative) 11/13/17 17:37 Urine Bilirubin Neg (Negative) 11/13/17 17:37 Urine Urobilinogen < 2.0 mg/dL (<2.0) 11/13/17 17:37 Ur Leukocyte Esterase Neg (Negative) 11/13/17 17:37 Urine WBC (Auto) 2.0 /HPF (0.0-6.0) 11/13/17 17:37 Urine RBC (Auto) 3.0 /HPF (0.0-6.0) 11/13/17 17:37 U Epithel Cells (Auto) 2.0 /HPF (0-13.0) 04/09/18 17:37 Assessment and Plan Assessment and plan: Left lower extremity DVT/saddle PE with right heart strain -Status post bilateral pulmonary artery thrombolysis -On heparin Acute respiratory failure with hypoxia, likely secondary to the PE -Continue oxygen saturation as needed and nebulizer breathing treatments. Insulin-dependent diabetes mellitus type 2 with hyperglycemia -We will place patient on basal and prandial insulin regimen -Will check A1c level Hypotension -Blood pressure improved with IV fluid, will monitor Mobid obesity with BMI of 57 -Weight loss recommended Obstructive sleep apnea -Will order CPAP I spent 45 minutes providing critical care to this seriously ill patient, who requires frequent reassessments of his respiratory status.
[2017-11-14] MEDS ORDERED: NACL 0.9% 1000 ML 1,000 ML IV SCH (03:00)
[2017-11-14 06:01] LABS: Heparin anti-factor XA 0.58 U.I./ml (0.3-0.7)
[2017-11-14 06:27] LABS: BUN/Creatinine Ratio 10; Blood Urea Nitrogen 7 mg/dL (9-20); Calcium 8.9 mg/dL (8.4-10.2); Hemolysis Index 15
[2017-11-14] MEDS ORDERED: DUONEB *Not for PRN Use IH SCH (08:00)
[2017-11-14 08:37] LABS: Basophils % (Auto) 0.7 % (0.0-1.8); Eosinophils # (Auto) 0.1 K/mm3 (0.0-0.4); Eosinophils % (Auto) 1.4 % (0.0-4.3); Hematocrit 40.7 % (35.5-45.6); Lymphocytes # (Auto) 1.5 K/mm3 (1.2-5.4); Lymphocytes % (Auto) 23.2 % (13.4-35.0); Mean Corpuscular HGB Conc 32 % (32-34); Mean Corpuscular Volume 78 fl (84-94); Monocytes # (Auto) 0.7 K/mm3 (0.0-0.8); Monocytes % (Auto) 10.4 % (0.0-7.3); Platelet Count 155 K/mm3 (140-440); Red Blood Count 5.24 M/mm3 (3.65-5.03); Red Cell Distribution Width 14.5 % (13.2-15.2)
[2017-11-14 08:38] LABS: Mean Corpuscular Hemoglobin 25 pg (28-32)
[2017-11-14 08:48] LABS: Heparin anti-factor XA 0.43 U.I./ml (0.3-0.7)
[2017-11-14] MEDS: HumuLIN R SUB-Q SCH ×4 (09:24→22:40)
[2017-11-14] MEDS: PEPCID PO SCH ×2 (09:26→22:03)
[2017-11-14] MEDS: HCTZ PO SCH (09:26)
[2017-11-14] MEDS: COLACE PO SCH ×2 (09:27→22:04)
[2017-11-14] MEDS: LANTUS SUB-Q SCH ×2 (09:28→22:40)
[2017-11-14] MEDS: SODIUM CHLORIDE FLUSH SYRINGE 10 ML IV SCH ×2 (09:39→22:07)
[2017-11-14] MEDS: TENORMIN PO SCH (10:00)
[2017-11-14] MEDS ORDERED: PHENTERMINE HCL 37.5 MG PO SCH (10:00)
--- NOTE | 2017-11-14 10:01 | Consultation ---
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 Found to have saddle PE. Started on IV anticoagulation and vascular surgery consulted. EKOS performed. Transitioned to the ICU for further monitoring. Past History Past Medical History: diabetes, hypertension, other (sleep apnea, morbid obesity ) Past Surgical History: Other Social history: other (occasional alcohol use but no tobacco or illicit drug use ) Family history: other (could not be obtained because patient is heavily sedated) Medications and Allergies Allergies Allergy/AdvReac Type Severity Reaction Status Date / Time No Known Allergies Allergy Unverified 11/13/17 14:38 Home Medications Medication Instructions Recorded Confirmed Last Taken Type Amoxicillin [Amoxicillin TAB] 875 mg PO BID 11/13/17 11/13/17 11/13/17 History Atenolol [Tenormin] 100 mg PO QDAY 11/13/17 11/13/17 11/13/17 History Cholecalciferol (Vitamin D3) 50,000 unit PO QWEEK 11/13/17 11/13/17 Unknown History [Decara 50,000 unit] Hydrochlorothiazide [HCTZ] 25 mg PO QDAY 11/13/17 11/13/17 11/13/17 History Phentermine HCl [Adipex-P] 37.5 mg PO QAM 11/13/17 11/13/17 Unknown History Active Meds: Active Medications Acetaminophen (Tylenol) 650 mg PO Q6H PRN PRN Reason: Pain MILD(1-3)/Fever >100.5/RENE Acetaminophen/Hydrocodone Bitart ([place] 5/325) 2 each PO Q6H PRN PRN Reason: Pain, Moderate (4-6) Albuterol/Ipratropium (Duoneb *Not For Prn Use*) 1 ampul IH Q6HRT [facility] Last Admin: 11/14/17 09:33 Dose: Not Given Amoxicillin (Amoxicillin Oral Liqd) 875 mg PO BID [facility] Last Admin: 11/13/17 23:53 Dose: 875 mg Atenolol (Tenormin) 100 mg PO QDAY [facility] Dextrose (D50w (25gm) Syringe) 50 ml IV PRN PRN PRN Reason: Hypoglycemia Docusate Sodium (Colace) 100 mg PO BID KATT Last Admin: 11/14/17 09:27 Dose: Not Given Ergocalciferol (Vitamin D2) 50,000 unit PO Sa [facility] Famotidine (Pepcid) 20 mg PO BID KATT Last Admin: 11/14/17 09:26 Dose: 20 mg Hydrochlorothiazide (Hctz) 25 mg PO QDAY KATT Last Admin: 11/14/17 09:26 Dose: 25 mg Alteplase, Recombinant 10 mg/ (Sodium Chloride) 250 mls @ 10 mls/hr EKOSDLUMEN DIRECT KATT Last Admin: 11/13/17 22:42 Dose: 10 mls/hr Alteplase, Recombinant 10 mg/ (Sodium Chloride) 250 mls @ 10 mls/hr IV DIRECT KATT Last Admin: 11/13/17 22:39 Dose: 10 mls/hr Heparin Sodium/Sodium Chloride (Heparin/ 0.45% Nacl-25,000 Unit/500 Ml) 25,000 unit in 500 mls @ 10 mls/hr SHEATH DIRECT KATT; Protocol Last Admin: 11/13/17 22:43 Dose: 500 units/hr, 10 mls/hr Heparin Sodium/Sodium Chloride (Heparin/ 0.45% Nacl-25,000 Unit/500 Ml) 25,000 unit in 500 mls @ 10 mls/hr SHEATH DIRECT KATT; Protocol Sodium Chloride (Nacl 0.9% 1000 Ml) 1,000 mls @ 30 mls/hr SHEATH DIRECT KATT Sodium Chloride (Nacl 0.9% 1000 Ml) 1,000 mls @ 35 mls/hr EKOSCLUMEN DIRECT KATT Sodium Chloride (Nacl 0.9% 1000 Ml) 1,000 mls @ 30 mls/hr SHEATH DIRECT KATT Sodium Chloride (Nacl 0.9% 1000 Ml) 1,000 mls @ 35 mls/hr EKOSCLUMEN DIRECT KATT Sodium Chloride (Nacl 0.9% 1000 Ml) 1,000 mls @ 125 mls/hr IV DIRECT KATT Last Admin: 11/14/17 06:30 Dose: 125 mls/hr Insulin Glargine (Lantus) 20 units SUB-Q BID [facility] Last Admin: 11/14/17 09:28 Dose: Not Given Insulin Human Regular (Humulin R) 0 units SUB-Q ACHS KATT; Protocol Last Admin: 11/14/17 09:24 Dose: 4 units Morphine Sulfate (Morphine) 2 mg IV Q4H PRN PRN Reason: Pain, Moderate (4-6) Ondansetron HCl (Zofran) 4 mg IV Q8H PRN PRN Reason: Nausea And Vomiting Sodium Chloride (Sodium Chloride Flush Syringe 10 Ml) 10 ml IV BID [facility] Last Admin: 11/14/17 09:39 Dose: 10 ml Sodium Chloride (Sodium Chloride Flush Syringe 10 Ml) 10 ml IV PRN PRN PRN Reason: LINE FLUSH Zolpidem Tartrate (Ambien) 5 mg PO QHS PRN PRN Reason: Sleeplessness Review of Systems All systems: negative Physical Examination Vital signs: Vital Signs Pulse 125 H 11/13/17 14:26 General appearance: no acute distress, alert Eyes: non-icteric ENT: oropharynx moist, other ([place] of IV) Neck: other (large in circumference) Effort: normal Ascultation: Bilateral: diminished breath sounds Percussion: Bilateral: not dull Tactile fremitus: Bilateral: normal Cardiovascular: regular rate and rhythm Gastrointestinal: normoactive bowel sounds, other (obese) Extremities: no edema Musculoskeletal: no deformities normal mental status, non-focal exam Results - Laboratory Findings CBC and BMP: 11/14/17 08:03 11/14/17 05:20 ABG ABG pH 7.425 pH Units (7.350-7.450) 11/13/17 15:20 ABG pCO2 39.7 mm Hg 11/13/17 15:20 ABG pO2 57.4 mm Hg (80.0-90.0) L 11/13/17 15:20 ABG O2 Saturation 90.3 % (95.0-99.0) L 11/13/17 15:20 PT/INR, D-dimer PT 14.6 Sec. (12.2-14.9) 11/13/17 20:21 INR 1.08 (0.87-1.13) 11/13/17 20:21 D-Dimer 2334.31 ng/mlDDU (0-234) H 11/13/17 15:09 Abnormal lab findings: Abnormal Labs 11/13/17 11/13/17 11/13/17 15:07 15:07 15:09 RBC 5.30 H MCV 77 L MCH 25 L Lymph % (Auto) 12.8 L [place] % (Auto) 8.3 H Lymph # 0.9 L Seg Neutrophils % 78.0 H APTT D-Dimer 2334.31 H ABG pO2 ABG O2 Saturation ABG Hemoglobin Oxyhemoglobin Sodium 134 L Chloride 92.0 L BUN Creatinine Glucose 505 H* POC Glucose Hemoglobin A1c Troponin T Triglycerides LDL Cholesterol Direct HDL Cholesterol 11/13/17 11/13/17 11/13/17 15:09 15:10 15:20 RBC MCV MCH Lymph % (Auto) [place] % (Auto) Lymph # Seg Neutrophils % APTT D-Dimer ABG pO2 57.4 L ABG O2 Saturation 90.3 L ABG Hemoglobin 12.4 L Oxyhemoglobin 88.5 L Sodium Chloride BUN Creatinine Glucose POC Glucose 400 H Hemoglobin A1c Troponin T 0.105 H* Triglycerides 218 H LDL Cholesterol Direct 143 H HDL Cholesterol 31 L 11/13/17 11/13/17 11/13/17 19:18 20:21 20:21 RBC 5.44 H MCV 76 L MCH 25 L Lymph % (Auto) [place] % (Auto) 11.2 H Lymph # Seg Neutrophils % APTT 43.4 H D-Dimer ABG pO2 ABG O2 Saturation ABG Hemoglobin Oxyhemoglobin Sodium Chloride BUN Creatinine Glucose POC Glucose 345 H Hemoglobin A1c Troponin T Triglycerides LDL Cholesterol Direct HDL Cholesterol 11/13/17 11/13/17 11/14/17 20:21 22:32 05:20 RBC MCV MCH Lymph % (Auto) [place] % (Auto) Lymph # Seg Neutrophils % APTT D-Dimer ABG pO2 ABG O2 Saturation ABG Hemoglobin Oxyhemoglobin Sodium 135 L Chloride 94.7 L BUN 8 L 7 L Creatinine 0.7 L Glucose 333 H 265 H POC Glucose 305 H Hemoglobin A1c Troponin T Triglycerides LDL Cholesterol Direct HDL Cholesterol 11/14/17 11/14/17 05:20 08:03 RBC 5.24 H MCV 78 L MCH 25 L Lymph % (Auto) [place] % (Auto) 10.4 H Lymph # Seg Neutrophils % APTT D-Dimer ABG pO2 ABG O2 Saturation ABG Hemoglobin Oxyhemoglobin Sodium Chloride BUN Creatinine Glucose POC Glucose Hemoglobin A1c 15.4 H Troponin T Triglycerides LDL Cholesterol Direct HDL Cholesterol Assessment and Plan 42 y/o male male with acute respiratory failure secondary to saddle PE with large clot burden. 1. Agree with EKOS therapy 2. Will need bilateral lE dopplers 3. 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 Continue home medication regimen 5. Home CPAP to be brought in
[2017-11-14] MEDS: AMOXICILLIN ORAL LIQD PO SCH ×2 (12:30→22:04)
[2017-11-14 17:03] LABS: Basophils # (Auto) 0.1 K/mm3 (0.0-0.1); Eosinophils # (Auto) 0.1 K/mm3 (0.0-0.4); Hematocrit 39.5 % (35.5-45.6); Hemoglobin 12.7 gm/dl (11.8-15.2); Lymphocytes # (Auto) 1.4 K/mm3 (1.2-5.4); Lymphocytes % (Auto) 24.9 % (13.4-35.0); Mean Corpuscular HGB Conc 32 % (32-34); Mean Corpuscular Hemoglobin 25 pg (28-32); Mean Corpuscular Volume 77 fl (84-94); Monocytes # (Auto) 0.6 K/mm3 (0.0-0.8); Monocytes % (Auto) 10.5 % (0.0-7.3); Platelet Count 149 K/mm3 (140-440); Red Cell Distribution Width 14.5 % (13.2-15.2)
[2017-11-14 17:11] LABS: Fibrinogen 389 mg/dl (211-480)
[2017-11-14 17:14] LABS: Heparin anti-factor XA < 0.10 U.I./ml (0.3-0.7)
[2017-11-15 04:35] LABS: BUN/Creatinine Ratio 12; Blood Urea Nitrogen 7 mg/dL (9-20); Hemolysis Index 5
[2017-11-15] MEDS: HumuLIN R SUB-Q SCH ×3 (08:33→18:52)
--- NOTE | 2017-11-15 09:40 | Progress Note ---
Assessment and Plan 42 y/o male male with acute respiratory failure secondary to saddle PE with large clot burden. 1. Will restart heparin drip, given this is a clot in a provoked setting, will need anticoagulation at least 6 months. 2. Asked CM to help patient with pricing and possibly coupons for anticoagulation. Warfarin is likely the most affordable but the frequent lab checks would be the biggest issue. 3. Stable for transfer to the floor 4. Suggest medicine consult for management of diabetes and other medical issues. Subjective Date of service: 11/15/17 Interval history: Anticoagulation is off. EKOS was removed and anticoagulation was not restarted. patient wore our CPAP machine last night. Tolerated. He does have DVT as well, unfortunately, he is unfunded. Objective Vital Signs - 12hr 11/14/17 11/14/17 11/15/17 22:00 23:00 00:00 Temperature Pulse Rate 65 63 76 Respiratory 11 L 21 25 H Rate Respiratory 12 Rate [ Generalized] Blood Pressure 144/86 146/96 120/70 O2 Sat by Pulse 97 99 Oximetry 11/15/17 11/15/17 11/15/17 00:05 00:06 00:44 Temperature 99.1 F Pulse Rate 65 69 Respiratory 22 17 Rate Respiratory Rate [ Generalized] Blood Pressure 120/70 120/70 O2 Sat by Pulse Oximetry 11/15/17 11/15/17 11/15/17 01:00 02:00 03:00 Temperature Pulse Rate 67 63 63 Respiratory 22 20 16 Rate Respiratory Rate [ Generalized] Blood Pressure 123/73 117/60 117/60 O2 Sat by Pulse 97 98 99 Oximetry 11/15/17 11/15/17 11/15/17 03:48 04:00 05:00 Temperature 97.9 F Pulse Rate 63 65 Respiratory 17 15 Rate Respiratory Rate [ Generalized] Blood Pressure 108/63 102/69 O2 Sat by Pulse 100 100 Oximetry 11/15/17 11/15/17 06:00 09:26 Temperature Pulse Rate 56 L Respiratory 15 Rate Respiratory Rate [ Generalized] Blood Pressure 111/69 O2 Sat by Pulse 99 99 Oximetry Constitutional: no acute distress, alert Eyes: non-icteric ENT: oropharynx moist, other (malampatti of IV) Neck: other (large in circumference) Effort: normal Ascultation: Bilateral: diminished breath sounds Percussion: Bilateral: not dull Tactile fremitus: Bilateral: normal Cardiovascular: regular rate and rhythm Gastrointestinal: normoactive bowel sounds, other (obese) Extremities: no edema Neurologic: normal mental status, non-focal exam CBC and BMP: 11/14/17 16:16 11/15/17 03:57 ABG, PT/INR, D-dimer: ABG ABG pH 7.425 pH Units (7.350-7.450) 11/13/17 15:20 ABG pCO2 39.7 mm Hg 11/13/17 15:20 ABG pO2 57.4 mm Hg (80.0-90.0) L 11/13/17 15:20 ABG O2 Saturation 90.3 % (95.0-99.0) L 11/13/17 15:20 PT/INR, D-dimer PT 14.6 Sec. (12.2-14.9) 11/13/17 20:21 INR 1.08 (0.87-1.13) 11/13/17 20:21 D-Dimer 2334.31 ng/mlDDU (0-234) H 11/13/17 15:09 Abnormal lab findings: Abnormal Labs 11/13/17 11/13/17 11/13/17 15:07 15:07 15:09 RBC 5.30 H MCV 77 L MCH 25 L Lymph % (Auto) 12.8 L [place] % (Auto) 8.3 H Lymph # 0.9 L Seg Neutrophils % 78.0 H APTT D-Dimer 2334.31 H Heparin Anti-Xa Level ABG pO2 ABG O2 Saturation ABG Hemoglobin Oxyhemoglobin Sodium 134 L Chloride 92.0 L BUN Creatinine Glucose 505 H* POC Glucose Hemoglobin A1c Calcium Troponin T Triglycerides LDL Cholesterol Direct HDL Cholesterol 11/13/17 11/13/17 11/13/17 15:09 15:10 15:20 RBC MCV MCH Lymph % (Auto) [place] % (Auto) Lymph # Seg Neutrophils % APTT D-Dimer Heparin Anti-Xa Level ABG pO2 57.4 L ABG O2 Saturation 90.3 L ABG Hemoglobin 12.4 L Oxyhemoglobin 88.5 L Sodium Chloride BUN Creatinine Glucose POC Glucose 400 H Hemoglobin A1c Calcium Troponin T 0.105 H* Triglycerides 218 H LDL Cholesterol Direct 143 H HDL Cholesterol 31 L 04/09/18 04/09/18 04/09/18 19:18 20:21 20:21 RBC 5.44 H MCV 76 L MCH 25 L Lymph % (Auto) [place] % (Auto) 11.2 H Lymph # Seg Neutrophils % APTT 43.4 H D-Dimer Heparin Anti-Xa Level ABG pO2 ABG O2 Saturation ABG Hemoglobin Oxyhemoglobin Sodium Chloride BUN Creatinine Glucose POC Glucose 345 H Hemoglobin A1c Calcium Troponin T Triglycerides LDL Cholesterol Direct HDL Cholesterol 11/13/17 11/13/17 11/14/17 20:21 22:32 05:20 RBC MCV MCH Lymph % (Auto) [place] % (Auto) Lymph # Seg Neutrophils % APTT D-Dimer Heparin Anti-Xa Level ABG pO2 ABG O2 Saturation ABG Hemoglobin Oxyhemoglobin Sodium 135 L Chloride 94.7 L BUN 8 L 7 L Creatinine 0.7 L Glucose 333 H 265 H POC Glucose 305 H Hemoglobin A1c Calcium Troponin T Triglycerides LDL Cholesterol Direct HDL Cholesterol 11/14/17 11/14/17 11/14/17 05:20 07:57 08:03 RBC 5.24 H MCV 78 L MCH 25 L Lymph % (Auto) [place] % (Auto) 10.4 H Lymph # Seg Neutrophils % APTT D-Dimer Heparin Anti-Xa Level ABG pO2 ABG O2 Saturation ABG Hemoglobin Oxyhemoglobin Sodium Chloride BUN Creatinine Glucose POC Glucose 260 H Hemoglobin A1c 15.4 H Calcium Troponin T Triglycerides LDL Cholesterol Direct HDL Cholesterol 11/14/17 11/14/17 11/14/17 12:52 16:16 16:16 RBC 5.10 H MCV 77 L MCH 25 L Lymph % (Auto) [place] % (Auto) 10.5 H Lymph # Seg Neutrophils % APTT D-Dimer Heparin Anti-Xa Level < 0.10 L ABG pO2 ABG O2 Saturation ABG Hemoglobin Oxyhemoglobin Sodium Chloride BUN Creatinine Glucose POC Glucose 260 H Hemoglobin A1c Calcium Troponin T Triglycerides LDL Cholesterol Direct HDL Cholesterol 11/14/17 11/14/17 11/15/17 17:36 22:16 03:57 RBC MCV MCH Lymph % (Auto) [place] % (Auto) Lymph # Seg Neutrophils % APTT D-Dimer Heparin Anti-Xa Level ABG pO2 ABG O2 Saturation ABG Hemoglobin Oxyhemoglobin Sodium Chloride 97.3 L BUN 7 L Creatinine 0.6 L Glucose 282 H POC Glucose 226 H 214 H Hemoglobin A1c Calcium 8.0 L Troponin T Triglycerides LDL Cholesterol Direct HDL Cholesterol 04/11/18 08:13 RBC MCV MCH Lymph % (Auto) [place] % (Auto) Lymph # Seg Neutrophils % APTT D-Dimer Heparin Anti-Xa Level ABG pO2 ABG O2 Saturation ABG Hemoglobin Oxyhemoglobin Sodium Chloride BUN Creatinine Glucose POC Glucose 275 H Hemoglobin A1c Calcium Troponin T Triglycerides LDL Cholesterol Direct HDL Cholesterol
[2017-11-15] MEDS ORDERED: HEPARIN/ 0.45% NACL-25,000 UNIT/500 ML 25,000 UNIT/500 ML BAG IV SCH (10:00)
[2017-11-15] MEDS ORDERED: HEPARIN 10,000 UNITS/10 ML IV ONE ×2 (10:00)
--- NOTE | 2017-11-15 10:29 | Progress Note ---
Assessment and Plan Patient will need outpatient anticoagulation for at least 6 months. Prior to discharge, the patient does need to ambulate with nursing assistance with recording of O2 saturation during ambulation. Subjective Date of service: 11/15/17 Principal diagnosis: Submassive PE Interval history: Patient doing well. No complaints of chest pain. He is satting between 95 and 96% on room air. He has not yet ambulated. Objective - Constitutional Vitals: Vital Signs - 12hr 11/14/17 11/15/17 11/15/17 23:00 00:00 00:05 Temperature Pulse Rate 63 76 65 Respiratory 21 25 H 22 Rate Blood Pressure 146/96 120/70 120/70 O2 Sat by Pulse 99 Oximetry 11/15/17 11/15/17 11/15/17 00:06 00:44 01:00 Temperature 99.1 F Pulse Rate 69 67 Respiratory 17 22 Rate Blood Pressure 120/70 123/73 O2 Sat by Pulse 97 Oximetry 11/15/17 11/15/17 11/15/17 02:00 03:00 03:48 Temperature 97.9 F Pulse Rate 63 63 Respiratory 20 16 Rate Blood Pressure 117/60 117/60 O2 Sat by Pulse 98 99 Oximetry 11/15/17 11/15/17 11/15/17 04:00 05:00 06:00 Temperature Pulse Rate 63 65 56 L Respiratory 17 15 15 Rate Blood Pressure 108/63 102/69 111/69 O2 Sat by Pulse 100 100 99 Oximetry 11/15/17 09:26 Temperature Pulse Rate Respiratory Rate Blood Pressure O2 Sat by Pulse 99 Oximetry General appearance: Present: no acute distress, obese - EENT Eyes: PERRL, EOM intact ENT: hearing intact - Neck Neck: supple, normal ROM - Respiratory Respiratory effort: normal - Breasts Breasts: deferred - Cardiovascular Rhythm: regular Extremities: no ischemia - Gastrointestinal General gastrointestinal: Present: deferred Rectal Exam: deferred - Genitourinary Male genitourinary: deferred - Neurologic Neurologic: no focal deficits - Psychiatric Psychiatric: appropriate mood/affect, cooperative - Labs CBC & Chem 7: 11/14/17 16:16 11/15/17 03:57 Labs: Abnormal lab results 11/14/17 11/14/17 11/14/17 Range/Units 07:57 12:52 16:16 RBC 5.10 H (3.65-5.03) M/mm3 MCV 77 L (84-94) fl MCH 25 L (28-32) pg [place] % (Auto) 10.5 H (0.0-7.3) % Heparin Anti-Xa Level (0.3-0.7) U.I./ml Chloride (98-107) mmol/L BUN (9-20) mg/dL Creatinine (0.8-1.5) mg/dL Glucose (75-100) mg/dL POC Glucose 260 H 260 H (70-105) Calcium (8.4-10.2) mg/dL 11/14/17 11/14/17 11/14/17 Range/Units 16:16 17:36 22:16 RBC (3.65-5.03) M/mm3 MCV (84-94) fl MCH (28-32) pg [place] % (Auto) (0.0-7.3) % Heparin Anti-Xa Level < 0.10 L (0.3-0.7) U.I./ml Chloride (98-107) mmol/L BUN (9-20) mg/dL Creatinine (0.8-1.5) mg/dL Glucose (75-100) mg/dL POC Glucose 226 H 214 H (70-105) Calcium (8.4-10.2) mg/dL 11/15/17 11/15/17 Range/Units 03:57 08:13 RBC (3.65-5.03) M/mm3 MCV (84-94) fl MCH (28-32) pg [place] % (Auto) (0.0-7.3) % Heparin Anti-Xa Level (0.3-0.7) U.I./ml Chloride 97.3 L (98-107) mmol/L BUN 7 L (9-20) mg/dL Creatinine 0.6 L (0.8-1.5) mg/dL Glucose 282 H (75-100) mg/dL POC Glucose 275 H (70-105) Calcium 8.0 L (8.4-10.2) mg/dL
[2017-11-15 10:46] LABS: Hematocrit 38.3 % (35.5-45.6); Hemoglobin 12.4 gm/dl (11.8-15.2)
[2017-11-15 10:56] LABS: INR 1.01 (0.87-1.13)
--- NOTE | 2017-11-15 11:01 | Progress Note ---
Hospitalist Physical - Constitutional Vitals: Temp Pulse Resp BP Pulse Ox 97.9 F 77 34 H 103/59 93 11/15/17 03:48 11/15/17 10:00 11/15/17 10:00 11/15/17 10:00 11/15/17 10:00 General appearance: Present: no acute distress, obese Results - Labs CBC & Chem 7: 11/15/17 10:35 11/15/17 03:57 Labs: Laboratory Last Values WBC 5.5 K/mm3 (4.5-11.0) 11/14/17 16:16 RBC 5.10 M/mm3 (3.65-5.03) H 11/14/17 16:16 Hgb 12.4 gm/dl (11.8-15.2) 11/15/17 10:35 Hct 38.3 % (35.5-45.6) 11/15/17 10:35 MCV 77 fl (84-94) L 11/14/17 16:16 MCH 25 pg (28-32) L 11/14/17 16:16 MCHC 32 % (32-34) 11/14/17 16:16 RDW 14.5 % (13.2-15.2) 11/14/17 16:16 Plt Count 145 K/mm3 (140-440) 11/15/17 10:35 Lymph % (Auto) 24.9 % (13.4-35.0) 11/14/17 16:16 [place] % (Auto) 10.5 % (0.0-7.3) H 11/14/17 16:16 [place] % (Auto) 2.0 % (0.0-4.3) 11/14/17 16:16 Baso % (Auto) 1.0 % (0.0-1.8) 11/14/17 16:16 Lymph # 1.4 K/mm3 (1.2-5.4) 11/14/17 16:16 [place] # 0.6 K/mm3 (0.0-0.8) 11/14/17 16:16 Eos # 0.1 K/mm3 (0.0-0.4) 11/14/17 16:16 Baso # 0.1 K/mm3 (0.0-0.1) 11/14/17 16:16 Seg Neutrophils % 61.6 % (40.0-70.0) 11/14/17 16:16 Seg Neutrophils # 3.4 K/mm3 (1.8-7.7) 11/14/17 16:16 PT 13.8 Sec. (12.2-14.9) 11/15/17 10:31 INR 1.01 (0.87-1.13) 11/15/17 10:31 APTT 34.0 Sec. (24.2-36.6) 11/15/17 10:31 Fibrinogen 389 mg/dl (211-480) 11/14/17 16:16 D-Dimer 2334.31 ng/mlDDU (0-234) H 11/13/17 15:09 Heparin Anti-Xa Level < 0.10 U.I./ml (0.3-0.7) L 11/14/17 16:16 ABG pH 7.425 pH Units (7.350-7.450) 11/13/17 15:20 ABG pCO2 39.7 mm Hg 11/13/17 15:20 ABG pO2 57.4 mm Hg (80.0-90.0) L 11/13/17 15:20 ABG HCO3 25.4 mmol/L (20.0-26.0) 11/13/17 15:20 ABG O2 Saturation 90.3 % (95.0-99.0) L 11/13/17 15:20 ABG O2 Content 15.4 (0.0-44) 11/13/17 15:20 ABG Base Excess 1.1 mmol/L (-2.0-3.0) 11/13/17 15:20 ABG Hemoglobin 12.4 gm/dl (14.0-18.0) L 11/13/17 15:20 ABG Carboxyhemoglobin 1.6 % (0.0-5.0) 11/13/17 15:20 ABG Methemoglobin 0.5 % (0.0-1.5) 11/13/17 15:20 VBG pH 7.320 (7.320-7.420) 11/13/17 15:07 Oxyhemoglobin 88.5 % (95.0-99.0) L 11/13/17 15:20 FiO2 21 % 11/13/17 15:20 Sodium 137 mmol/L (137-145) 11/15/17 03:57 Potassium 3.6 mmol/L (3.6-5.0) 11/15/17 03:57 Chloride 97.3 mmol/L (98-107) L 11/15/17 03:57 Carbon Dioxide 27 mmol/L (22-30) 11/15/17 03:57 Anion Gap 16 mmol/L 11/15/17 03:57 BUN 7 mg/dL (9-20) L 11/15/17 03:57 Creatinine 0.6 mg/dL (0.8-1.5) L 11/15/17 03:57 Estimated GFR > 60 ml/min 11/15/17 03:57 BUN/Creatinine Ratio 12 % 11/15/17 03:57 Glucose 282 mg/dL (75-100) H 11/15/17 03:57 POC Glucose 275 (70-105) H 11/15/17 08:13 Hemoglobin A1c 15.4 % (4-6) H 11/14/17 05:20 Calcium 8.0 mg/dL (8.4-10.2) L 11/15/17 03:57 Total Creatine Kinase 83 units/L (55-170) 11/13/17 15:09 Troponin T 0.105 ng/mL (0.00-0.029) H* 11/13/17 15:09 Triglycerides 218 mg/dL (2-149) H 11/13/17 15:09 Cholesterol 193 mg/dL (50-199) 11/13/17 15:09 LDL Cholesterol Direct 143 mg/dL (50-130) H 11/13/17 15:09 HDL Cholesterol 31 mg/dL (40-59) L 11/13/17 15:09 Cholesterol/HDL Ratio 6.22 % 11/13/17 15:09 Urine Color Yellow (Yellow) 11/13/17 17:37 Urine Turbidity Clear (Clear) 11/13/17 17:37 Urine pH 6.0 (5.0-7.0) 11/13/17 17:37 Ur Specific [place] 1.030 (1.003-1.030) 11/13/17 17:37 Urine Protein <15 mg/dl mg/dL (Negative) 11/13/17 17:37 Urine Glucose (UA) >=500 mg/dL (Negative) 11/13/17 17:37 Urine Ketones Tr mg/dL (Negative) 11/13/17 17:37 Urine Blood Neg (Negative) 11/13/17 17:37 Urine Nitrite Neg (Negative) 11/13/17 17:37 Urine Bilirubin Neg (Negative) 11/13/17 17:37 Urine Urobilinogen < 2.0 mg/dL (<2.0) 11/13/17 17:37 Ur Leukocyte Esterase Neg (Negative) 11/13/17 17:37 Urine WBC (Auto) 2.0 /HPF (0.0-6.0) 11/13/17 17:37 Urine RBC (Auto) 3.0 /HPF (0.0-6.0) 11/13/17 17:37 U Epithel Cells (Auto) 2.0 /HPF (0-13.0) 11/13/17 17:37
[2017-11-15] MEDS: HCTZ PO SCH (11:14)
[2017-11-15] MEDS: LANTUS SUB-Q SCH (11:15)
[2017-11-15] MEDS: COLACE PO SCH (11:15)
[2017-11-15] MEDS: PEPCID PO SCH (11:15)
[2017-11-15] MEDS: SODIUM CHLORIDE FLUSH SYRINGE 10 ML IV SCH (11:16)
[2017-11-15] MEDS: TENORMIN PO SCH (11:16)
--- NOTE | 2017-11-15 11:32 | Vascular Lab Report ---
LOWER EXTREMITY VENOUS DUPLEX: REASON FOR EXAM: Pain and swelling of the lower extremities. COMMENTS ON THE RIGHT: All veins visualized are freely compressible without evidence of internal echogenicity. Flow is spontaneous and phasic throughout. COMMENTS ON THE LEFT: Acute deep venous thrombosis noted in the popliteal vein. The remaining veins visualized are freely compressible without evidence of internal echogenicity. Spontaneous and phasic flow is present proximally. IMPRESSION: Acute deep venous thrombosis of the left popliteal vein. No acute deep venous thrombosis in the right lower extremity.
[2017-11-15] MEDS ORDERED: ELIQUIS PO SCH (12:00)
--- NOTE | 2017-11-15 14:12 | Discharge Summary ---
Providers - Providers Date of Admission: 11/13/17 21:01 Date of discharge: 11/15/17 Attending physician: LUCILLE SABA 11/13/17 19:03 Consult to Physician [CONS] Stat Comment: Consulting Provider: SO AZEVEDO Physician Instructions: Reason For Exam: massive pe 11/13/17 19:06 Consult to Physician [CONS] Urgent Comment: Dr. Soto (er dr) spoke with Dr. Brooks Consulting Provider: KVNG SMITH Physician Instructions: Reason For Exam: massive pe 11/13/17 21:04 Consult to Physician [CONS] Routine Comment: Consulting Provider: EZE BOUCHER Physician Instructions: Reason For Exam: Medical Mangement 11/14/17 02:18 Consult to Dietitian/Nutrition [CONS] Routine Physician Instructions: Reason For Exam: Reason for Consult: Diet education Primary care physician: STAFF VETERINARIAN Hospitalization Condition: Good Procedures: Bilateral pulmonary EKOS catheter placement Hospital course: Patient presented with a history of sudden massive pulmonary saddle embolism with evidence of right heart strain. He was immediately taken for placement of bilateral thrombolytics catheters overnight. Following thrombolysis, the patient had improvement in his respiratory symptoms. He is now satting 96% on room air. With ambulation, the patient sats between 91 and 95% on room air. Disposition: DC-01 TO HOME OR SELFCARE Core Measure Documentation - Palliative Care Palliative Care/ Comfort Measures: Not Applicable - Core Measures Any of the following diagnoses?: DVT/PE - VTE Discharge Requirements Deep Vein Thrombosis/Pulmonary Embolism Present on Admission: Yes Has pt received <5 days of overlap therapy or INR<2.0: Yes (criteria for overlap therapy at discharge: on overlap therapy for less than 5 days or INR<2.0 ) Anticoagulant overlap therapy prescribed at discharge: Yes Contraindication No Overlap Therapy order at DC: Not Indicated (discharged on Eliquis) Exam - Constitutional Vitals: Temp Pulse Resp BP Pulse Ox 97.9 F 62 34 H 103/59 93 11/15/17 03:48 11/15/17 11:16 11/15/17 10:00 11/15/17 11:16 11/15/17 10:00 General appearance: Present: no acute distress - EENT Eyes: Present: PERRL ENT: hearing intact - Neck Neck: Present: supple, normal ROM - Respiratory Respiratory effort: normal - Cardiovascular Rhythm: regular - Extremities Extremities: no ischemia Extremity abnormal: edema, other (venous insufficiency) - Abdominal General gastrointestinal: Present: deferred Male genitourinary: Present: deferred - Rectal Rectal Exam: deferred - Psychiatric Psychiatric: appropriate mood/affect, cooperative - Neurologic Neurologic: no focal deficits Plan Activity: advance as tolerated Weight Bearing Status: Weight Bear as Tolerated Diet: regular Wound: keep clean and dry, per your surgeon's advice Follow up with: PRIMARY CARE, [Primary Care Provider] - 3-5 Days
[2017-11-15 17:00] VITALS: BP 131/72
[2017-11-15] MEDS ORDERED: LANTUS SUB-Q SCH (22:00)
[2017-11-20] MEDS ORDERED: VITAMIN D2 PO SCH (10:00)
[2017-11-22] MEDS ORDERED: ELIQUIS PO SCH (10:00)
== END 2017-11-15 20:30 | disposition home or self-care (01) | DRG 175 ==
LOC: ED 14:08 → CC1 21:01
PROVIDERS: ADMIT Surgery Vascular Surgery; ATTEND Surgery Vascular Surgery
PROC: 4A033R1 Measurement of Arterial Saturation, Peripheral, Percutaneous Approach (ICD-10-PCS; principal; 2017-11-13)
PROC: 3E06317 Introduction of Other Thrombolytic into Central Artery, Percutaneous Approach (ICD-10-PCS; 2017-11-13)
PROC: 02HR33Z Insertion of Infusion Device into Left Pulmonary Artery, Percutaneous Approach (ICD-10-PCS; 2017-11-13)
PROC: 02HQ33Z Insertion of Infusion Device into Right Pulmonary Artery, Percutaneous Approach (ICD-10-PCS; 2017-11-13)
PROC: 3E06317 Introduction of Other Thrombolytic into Central Artery, Percutaneous Approach (ICD-10-PCS; 2017-11-13)
PROC: 5A09357 Assistance with Respiratory Ventilation, Less than 24 Consecutive Hours, Continuous Positive Airway Pressure (ICD-10-PCS; 2017-11-15)
DX: I26.92 Saddle embolus of pulmonary artery without acute cor pulmonale (principal); J96.01 Acute respiratory failure with hypoxia; I82.432 Acute embolism and thrombosis of left popliteal vein; Z68.43 Body mass index [BMI] 50.0-59.9, adult; I51.9 Heart disease, unspecified; E66.01 Morbid (severe) obesity due to excess calories; G47.33 Obstructive sleep apnea (adult) (pediatric); I11.9 Hypertensive heart disease without heart failure
CPT/HCPCS: 36415; 37211; 71045; 71275; 80048; 80061; 81001; 82550; 82803; 82805; 82962; 83036; 84484; 85014; 85018; 85025; 85049; 85379; 85384; 85520; 85610; 85730; 93005; 93010; 93970; 94660; 94760; C1757; C1769; C1894; J0690; J1644; J1650; J1815; J2250; J2997; J3010; J7030; J7040; J7050; Q9967